=== PATIENT | male | born 1935 | race Caucasian/White ===

== ENCOUNTER 2019-10-28 08:22 | Observation (INO) | payer MEDICARE, BC ==
[2019-10-24 12:00] LABS: CLARITY,URINE CLOUDY (Clear); COLOR,URINE YELLOW (Yellow); GLUCOSE, URINE NEGATIVE (Neg); KETONES,URINE NEGATIVE (Neg); LEUKOCYTE ESTERASE ,URINE NEGATIVE (Neg); NITRITES, URINE NEGATIVE (Neg); OCCULT BLOOD,URINE LARGE (Neg); PROTEIN,URINE NEGATIVE (Neg); UROBILINOGEN,URINE 0.2 E.U/dL (0.2-1.0)
[2019-10-24 12:03] LABS: BASOPHILS % (AUTO) 0.8 % (0-1); EOSINOPHILS # (AUTO) 0.1 X10'3 (0-0.9); EOSINOPHILS % (AUTO) 1.4 % (0-6); LYMPHOCYTES % (AUTO) 19.8 % (21-51); MEAN CORPUSCULAR HEMOGLOBIN 30.3 PG (27.0-31.0); MEAN CORPUSCULAR HGB CONC 33.9 g/dL (33.0-36.5); MEAN CORPUSCULAR VOLUME 89.3 FL (78-98); MEAN PLATELET VOLUME 7.1 FL (7.4-10.4); MONOCYTES # (AUTO) 0.6 X10'3 (0-0.9); MONOCYTES % (AUTO) 11.4 % (2-12); NEUTROPHILS # (AUTO) 3.3 X10'3 (1.8-7.7); NEUTROPHILS % (AUTO) 66.6 % (42-75); PRE OP HEMOGLOBIN 12.5 g/dL (14.0-17.9); PRE OP PLATELET COUNT 246 X10'3 (140-440); RED BLOOD COUNT 4.14 X10'6 (4.70-6.10)
[2019-10-24 12:07] LABS: UA COLLECTION TYPE CLN CATCH MIDSTREAM
[2019-10-24 12:10] LABS: SQUAMOUS EPITHELIAL CELL,UR FEW /LPF (FEW)
[2019-10-24 12:11] LABS: BACTERIA,URINE FEW /HPF (Neg); RBC,URINE TNTC /HPF (0-2); WBC,URINE 0-4 /HPF (0-4)
[2019-10-24 12:12] LABS: TRANSITIONAL EPI CELLS,URINE FEW /HPF
[2019-10-24 12:24] LABS: ALBUMIN 3.5 G/DL (3.4-5.0); ALBUMIN/GLOBULIN RATIO 0.9 (1.1-1.5); ALKALINE PHOSPHATASE 144 IU/L (46-116); BLOOD UREA NITROGEN 14 MG/DL (7-18); BUN/CREATININE RATIO 20.9 (5.4-32.0); CALCIUM 9.1 MG/DL (8.5-10.1); CHLORIDE 97 MMOL/L (99-107); CREATININE 0.67 MG/DL (0.60-1.10); PRE OP ANION GAP 5 (8-16); PRE OP AST 48 U/L (10-37); PRE OP BILIRUB, TOTAL 0.6 MG/DL (0.0-1.0); PRE OP GLUCOSE 102 MG/DL (70-104); PRE OP POTASSIUM 4.4 MMOL/L (3.4-5.1); TOTAL CARBON DIOXIDE 27.8 MMOL/L (24-32); TOTAL PROTEIN 7.2 G/DL (6.4-8.2); eGFR > 90 ML/MIN
[2019-10-24 12:30] LABS: PRE OP SODIUM 130 MMOL/L (135-145)
[2019-10-24 12:31] LABS: PRE OP ALT 145 U/L (30-65)
[2019-10-28] VITALS (23 sets, daily range): BP systolic 127–169; BP diastolic 57–75
[~2019-10-28] VITALS: Ht 177.8 cm; Wt 104.3 kg
[~2019-10-28 08:22] MED LIST: COU7.5T PO; DOCUMENT DATE & TIME OF BETA-BLOCKER PO ONE; DOXA4TAB3 PO; GABA-532 PO; LEVO125T PO; METO-539 PO; cefazolin/dext.iso 2gm/100ml 100 ML IV ONE; famotidine 10mg tablet PO ONE; iohexol 300mg/ml 100ml inj. ONE; ringers solution, lacted 1,000 ML IV SCH
[2019-10-28] MEDS ORDERED: ringers solution, lacted 1,000 ML IV SCH (09:33)
[2019-10-28] MEDS ORDERED: fentaNYL/PF 50MCG/1 ML 2ML syringe IV PRN ×2 (09:35)
[2019-10-28] MEDS ORDERED: hydrALAZINE 20mg/ml inj. IV PRN (09:35)
[2019-10-28] MEDS ORDERED: morphine 4 MG/ML inj SYRINge IV PRN (09:35)
[2019-10-28] MEDS ORDERED: labetalol 20mg/4ml (5mg/ml) syringe IV PRN (09:35)
[2019-10-28] MEDS ORDERED: ondansetron/PF 4mg/2ml inj IV PRN (09:35)
[2019-10-28] MEDS ORDERED: BUPIVACAINE liposomal/PF 13.3 MG/ML vial IM ONE (09:54)
[2019-10-28] MEDS ORDERED: ceFAZolin 1000mg inj ONE (09:54)
[2019-10-28] MEDS ORDERED: BUPIVAcaine/PF 2.5 mg/ml (0.25%) 30ml vial ONE (09:54)
[2019-10-28 10:03] LABS: BASOPHILS # (AUTO) 0.1 X10'3 (0-0.2); BASOPHILS % (AUTO) 1.2 % (0-1); EOSINOPHILS # (AUTO) 0.1 X10'3 (0-0.9); EOSINOPHILS % (AUTO) 1.1 % (0-6); LYMPHOCYTES % (AUTO) 20.6 % (21-51); MEAN CORPUSCULAR HEMOGLOBIN 30.6 PG (27.0-31.0); MEAN CORPUSCULAR HGB CONC 34.6 g/dL (33.0-36.5); MEAN CORPUSCULAR VOLUME 88.3 FL (78-98); MONOCYTES # (AUTO) 0.4 X10'3 (0-0.9); MONOCYTES % (AUTO) 7.1 % (2-12); NEUTROPHILS # (AUTO) 3.5 X10'3 (1.8-7.7); PRE OP HEMATOCRIT 37.3 % (42.0-52.0); PRE OP HEMOGLOBIN 12.9 g/dL (14.0-17.9); PRE OP PLATELET COUNT 282 X10'3 (140-440); RED BLOOD COUNT 4.23 X10'6 (4.70-6.10); RED CELL DISTRIBUTION WIDTH 13.6 % (11.5-14.5)
[2019-10-28 10:16] LABS: PRE OP INR 1.1 INR; PRE OP PROTIME 10.9 SECONDS (9.0-12.0)
[2019-10-28 10:17] LABS: ALBUMIN 3.9 G/DL (3.4-5.0); ALBUMIN/GLOBULIN RATIO 1.1 (1.1-1.5); ALKALINE PHOSPHATASE 174 IU/L (46-116); BLOOD UREA NITROGEN 18 MG/DL (7-18); BUN/CREATININE RATIO 25.4 (5.4-32.0); CALCIUM 9.5 MG/DL (8.5-10.1); CHLORIDE 98 MMOL/L (99-107); CREATININE 0.71 MG/DL (0.60-1.10); PRE OP ANION GAP 6 (8-16); PRE OP AST 30 U/L (10-37); PRE OP BILIRUB, TOTAL 0.6 MG/DL (0.0-1.0); PRE OP GLUCOSE 109 MG/DL (70-104); PRE OP POTASSIUM 4.9 MMOL/L (3.4-5.1); PRE OP SODIUM 133 MMOL/L (135-145); TOTAL CARBON DIOXIDE 29.3 MMOL/L (24-32); TOTAL PROTEIN 7.5 G/DL (6.4-8.2); eGFR > 90 ML/MIN
[2019-10-28 10:29] LABS: PRE OP ALT 92 U/L (30-65)
[2019-10-28] MEDS ORDERED: sevoflurane 250ml liquid IH ONE (10:51)
[2019-10-28] MEDS ORDERED: dexamethasone sod phosphate 10mg/ml inj ONE (10:51)
[2019-10-28] MEDS ORDERED: glycopyrrolate 0.2mg/ml inj ONE (10:51)
[2019-10-28] MEDS ORDERED: neostigmine methylsulfate 1 MG/ML 10ml vial ONE (10:51)
[2019-10-28] MEDS ORDERED: midazolam 2 mg/2 ml injection ONE (10:59)
[2019-10-28] MEDS ORDERED: fentaNYL/PF 50MCG/1 ML 2ML syringe ONE (10:59)
[2019-10-28] MEDS ORDERED: propofol inj 20 ML IV ONE (11:09)
[2019-10-28] MEDS ORDERED: LIDOcaine 2% (20mg/ml) 5ml vial ONE (11:09)
[2019-10-28] MEDS ORDERED: rocuronium 10mg/ml inj IV ONE (11:09)
[2019-10-28] MEDS ORDERED: ondansetron/PF 4mg/2ml inj ONE (11:10)
[2019-10-28] MEDS ORDERED: atropine 0.4 mg/ml 20ml vial ONE (11:17)
--- NOTE | 2019-10-28 12:41 | NUR ---
Received from OR via BED, accompanied by Anesthesiologist DR FERNANDO and report given by Anesthesiologist. PT RESTLESS, DENIES PAIN, ABDOMEN W/3 LAP SITES W/BANDAIDS CDI, FABIAN W/S/S DRAINAGE. Addendum: 10/28/19 at 1356 by Ilda Joseph RN Amended: Links added.
[2019-10-28] MEDS: morphine 4 MG/ML inj SYRINge IV PRN ×2 (13:17→13:33)
[2019-10-28] MEDS ORDERED: HYDROcodone/acetaminophen 5mg/325mg tablet PO PRN (13:40)
[2019-10-28] MEDS ORDERED: HYDROcodone/acetaminophen 10/325mg tab PO PRN (13:40)
--- NOTE | 2019-10-28 15:00 | NUR ---
Patient in room [facility]. I have received report from Ilda GONZALEZ and had the opportunity to ask questions and assume patient care.
--- NOTE | 2019-10-28 15:01 | NUR ---
Report called to receiving nurse. Transferred via BED, 2 BAGS OF Belongings SENT W/PT TO ROOM 345A, BLL, CALL LIGHT GIVEN, SIDE RAILS UP X 2, PRESENT, NURSES AIDE IN TO ATTACH PT TO VITAL SIGNS MACHINE, NURSE NOTIFIED OF PTS ARRIVAL. Special Issues communicated to receiving nurse. YES. Addendum: 10/28/19 at 1513 by Ilda Joseph RN Amended: Links added.
--- NOTE | 2019-10-28 15:20 | NUR ---
Patient made accustomed to room, patient vitals taken at this time. All medications that were due administered at this time. Patient surgical sites assessed and checked. Patient heart sounds s1s2, clear lung sounds. Patient experiencing minimal pain. Patient at bedside at this time. Call light in reach.
[2019-10-28] MEDS: potassium CL 20mEq in D5-1/2NS 1,000 ML IV SCH (15:30)
[2019-10-28] MEDS: ceFAZolin inj. 1,000 MG in dextrose 5%-water 50ml 50 ML IV SCH (15:33)
--- NOTE | 2019-10-28 18:30 | NUR ---
Patient in room [facility]. I have received report from Zi GONZALEZ and had the opportunity to ask questions and assume patient care.
--- NOTE | 2019-10-28 18:46 | NUR ---
Problems reprioritized. Patient report given, questions answered & plan of care reviewed with anthony Robles.
[2019-10-28] MEDS: gabapentin 300mg capsule PO SCH (20:08)
[2019-10-28] MEDS ORDERED: metoprolol succinate 25mg (24-HOUR) SR. Tablet PO SCH (21:00)
[2019-10-28] MEDS ORDERED: warfarin 7.5mg tablet PO SCH (21:00)
[2019-10-29] VITALS: BP 136/65
[2019-10-29] MEDS: ceFAZolin inj. 1,000 MG in dextrose 5%-water 50ml 50 ML IV SCH ×2 (01:02→07:53)
[2019-10-29] MEDS: potassium CL 20mEq in D5-1/2NS 1,000 ML IV SCH (03:31)
[2019-10-29 04:00] VITALS: BP 134/62
--- NOTE | 2019-10-29 06:12 | NUR ---
Problems reprioritized. Patient report given, questions answered & plan of care reviewed with Ebony GONZALEZ.
--- NOTE | 2019-10-29 06:29 | NUR ---
Problems reprioritized. Patient report given, questions answered & plan of care reviewed with Ebony GONZALEZ.
--- NOTE | 2019-10-29 06:40 | NUR ---
Patient in room [facility]. I have received report from CARLOS LEON and had the opportunity to ask questions and assume patient care.
[2019-10-29 07:00] VITALS: BP 147/74
[2019-10-29] MEDS: gabapentin 300mg capsule PO SCH (07:52)
[2019-10-29] MEDS ORDERED: doxazosin mesylate 2mg tablet PO SCH (08:00)
[2019-10-29] MEDS ORDERED: levoTHYROXINE 125mcg tablet PO SCH (08:00)
[2019-10-29] MEDS ORDERED: levoTHYROXINE 100mcg tablet PO SCH (08:00)
[2019-10-29 11:12] VITALS: BP 103/56
--- NOTE | 2019-10-29 15:11 | NUR ---
PATIENT STABLE AND APPROPRIATE FOR DISCHARGE, TELE TAKEN OFF, IV TAKEN OUT, EDUCATION GIVEN, FABIAN SUPPLIES SENT WITH PATIENT, ALL BELONGINGS SENT WITH PATIENT, PATIENT TAKEN TO LOBBY IN WHEELCHAIR TO AN AWAITING CAR WHERE WILL TAKE PATIENT HOME
--- NOTE | 2019-10-31 16:12 | NUR ---
Case management DC follow up: spoke to pt spouse. reports, "it's a slow-go, he's uncomfortable, but doing well", "dr told us it was the worst he's seen out of thousands of this type of surgery", 'lots of scar tissue". pt is ambulating as tolerated, agreed that "splinting" might help the pain when pt coughs. Denies cp, emergent/acute general pain, SOB, resp distress, NV, DE ANDA, blurry vision, dizziness, s/s of infection around the surg site/tube insert site as indicated in after-care documents, emptying bag twice daily. verbalizes understanding of meds and why prescribed, taking as ordered. Follow up w/Dr Fernando 11/03/2019 2pm. will schedule follow up w/PCP/Dr Tomlinson. verbalizes understanding of s/s that would warrant 06-04/ER visit for evaluation. needs met, questions answered at DC, no further questions at this time. Addendum: 10/31/19 at 1621 by Mary Anne Lynn RN Case management DC follow up: pt spouse gave pt stool softener, pt has has a little watery BM, understands s/s to look for if issues w/BM.
== END 2019-10-29 12:30 | disposition home or self-care (01) ==
LOC: PAS 08:22 → SUR 3N 13:43
PROVIDERS: ADMIT Surgery; ATTEND Surgery
DX: K80.13 Calculus of gallbladder with acute and chronic cholecystitis with obstruction (principal); G89.29 Other chronic pain; M54.9 Dorsalgia, unspecified; M25.559 Pain in unspecified hip; Z96.642 Presence of left artificial hip joint
CPT/HCPCS: 36415; 47562; 49652; 71046; 74177; 80053; 81001; 85025; 85610; 85730; 96365; 96366; 96375; C9290; G0378; J0461; J0690; J1100; J2001; J2250; J2270; J2405; J2704; J2710; J3010; J3480; J3490; J7060; J7120; Q9967; 88302; 88304; A4618; A6449; A7000

== ENCOUNTER 2021-12-02 13:43 | Outpatient (CLI) | payer MEDICARE, BC ==
[~2021-12-02 13:43] MED LIST changes: -DOCUMENT DATE & TIME OF BETA-BLOCKER PO ONE; -cefazolin/dext.iso 2gm/100ml 100 ML IV ONE; -famotidine 10mg tablet PO ONE; -iohexol 300mg/ml 100ml inj. ONE; -ringers solution, lacted 1,000 ML IV SCH
== END 2021-12-02 23:59 | disposition home or self-care (01) ==
LOC: RAD 13:43
PROVIDERS: ATTEND Nurse Practitioner Family
DX: R55 Syncope and collapse (principal)
CPT/HCPCS: 95816